=== PATIENT | female | born 1960 ===

== ENCOUNTER 2021-09-20 12:01 | Outpatient (CLI) | payer MEDICARE, SELFPAY ==
[2021-09-20 13:24] LABS: SARS-CoV-2 RNA PCR Negative (Negative)
== END 2021-09-20 12:02 | disposition home or self-care (01) ==
LOC: CHSLAB 12:06
PROVIDERS: PCP Physician Assistant; Visit Provider Physician Assistant
DX: B34.9 Viral infection, unspecified (principal); Z20.822 Contact with and (suspected) exposure to COVID-19
CPT/HCPCS: C9803; U0003; U0005

== ENCOUNTER 2023-11-07 20:40 | Emergency (ER) | payer MEDICARE, SELFPAY ==
--- NOTE | ~2023-11-07 | CT_ITS ---
EXAMINATION: CT diagnostic chest w con DATE: 11/07/2023 22:20 INDICATION: Left upper lobe mass, history of left upper lobectomy TECHNIQUE: Transaxial computed tomographic images of the chest were obtained after the administration of 75 cc of Omnipaque 350 intravenous contrast. The dose-length product (DLP) was 366.39 mGy-cm. Ite rative reconstruction was used. COMPARISON: None FINDINGS: There is severe emphysema. There is volume loss and architectural distortion of the left up per lobe with a surgical staple line noted, consistent with history of left upper lobectomy. There is a 2.3 x 2.2 cm area of subpleural fluid density in the left upper lung zone on image 31. There is pl eural thickening medially in the left upper lung zone. There is no pneumothorax. There is partial ate lectasis of the right middle lobe. There are subtle nodules of the left lower lobe. The heart size is normal. There are no pathologically enlarged thoracic lymph nodes. Changes in the left ribs are cons istent with prior thoracotomy. Punctate calcifications in an otherwise normal spleen likely represent healed granulomatous disease. Changes of cholecystectomy are noted. IMPRESSION: 1. Left upper lung zone findings most consistent with scarring, volume loss, and surgical change rela you to prior left upper lobectomy which account for the chest radiographic findings. Comparison with any available prior imaging would be helpful to assess for interval change. 2. Subtle nodules of the left lower lobe, likely infectious or inflammatory. 3. Severe emphysema. Reviewed, dictated and finalized at location F. IMPRESSION: 1. Left upper lung zone findings most consistent with scarring, volume loss, an d surgical change related to prior left upper lobectomy which account for the c hest radiographic findings. Comparison with any available prior imaging would b e helpful to assess for interval change. 2. Subtle nodules of the left lower lobe, likely infectious or inflammatory. 3. Severe emphysema.
--- NOTE | ~2023-11-07 | XR_ITS ---
EXAMINATION: XR chest 2V DATE: 11/07/2023 21:14 INDICATION: Shortness of breath TECHNIQUE: Frontal and lateral views of the chest are obtained COMPARISON: None available FINDINGS: There is an approximately 4 cm mass of the left upper lobe with volume loss and traction of the lower trachea. No pleural effusion or pneumothorax. The cardiomediastinal silhouette is normal. There is mild thoracic spondylosis. IMPRESSION: 1. 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 Reviewed, dictated and finalized at location F.
[2023-11-07 20:40] VITALS: BP 179/119; PULSE 56; RESP 24; O2SAT 96
--- NOTE | 2023-11-07 20:42 | ED.SOB ---
HPI - SOB/Dyspnea General Chief Complaint: Anxiety Stated Complaint: Panic Attack Time Seen by Provider: 11/07/23 20:42 Source: patient Mode of arrival: ambulatory Limitations: no limitations History of Present Illness HPI Narrative: patient is a 63-year-old female with a lot of anxiety this evening and felt like she had a panic attack. She became short of breath. patient is on chronic home O2 and has a L lobectomy. MD elicited complaint: shortness of breath Pertinent past history: COPD Onset (ago): minute(s) Context: anxiety and other ( Lots of concerns and anxiety this evening over housing) Timing: constant Severity: similar to previous episodes ( this feels like a prior panic attack) Exacerbating factors: other ( anxiety) Relieving factors: other ( breathing into a paper bag) Known history of: COPD Associated symptoms: denies other symptoms Treatment prior to arrival: none Related Data Home oxygen amount: 2 liters Home Medications Medication Instructions Recorded Confirmed albuterol sulfate 90 mcg/actuation 90 mcg inhalation Q4H PRN SOB 11/07/23 11/07/23 aerosol inhaler diazepam 5 mg tablet 5 mg PO BID PRN Anxiety 11/07/23 11/07/23 Allergies Allergy/AdvReac Type Severity Reaction Status Date / Time No Known Allergies Allergy Verified 11/07/23 21:58 Review of Systems Review of Systems: All systems reviewed & are unremarkable except as noted in HPI and below Constitutional: Constitutional: Reports no additional constitutional complaints Eyes: Eyes: Reports no additional eye complaints ENT: Reports system reviewed and no additional complaints, except as documented Cardiovascular: Cardiovascular: Reports no additional cardiovascular complaints Respiratory: Respiratory: Reports no additional respiratory complaints Gastrointestinal: Gastrointestinal: Reports no additional gastrointestinal complaints Genitourinary: Genitourinary: Reports no additional female genitourinary complaints Musculoskeletal: Musculoskeletal: Reports no additional musculoskeletal complaints Integumentary/Breasts: Skin/Breast: Reports system reviewed and no additional complaints, except as docu Neurologic: Reports system reviewed and no additional complaints, except as documented Psychiatric: Psychiatric: Reports no additional psychiatric complaints Endocrine: Endocrine: Reports no additional endocrine complaints Hematologic/Lymphatic: Hematologic/Lymphatic: Reports no additional hematologic/lymphatic complaints Allergic/Immunologic: Allergic/Immunologic: Reports no additional allergic/immunologic complaints Exam Const: General: healthy appearing Nutritional Appearance: well nourished Orientation/consciousness: patient oriented x3 HENMT: Head: normal to inspection Ears: external ears normal Face/Nose/Sinus: Normal external nose present Eyes: Conjunctivae: conjunctivae normal Pupils: Equal, round and reactive pupils present EOM: EOMs intact bilaterally Neck: Neck: normal visual inspection Chest: Chest palpation & inspection: normal inspection of the chest Resp: Effort & Inspection: normal respiratory effort and not labored Auscultation: clear to auscultation bilaterally Cardio: Rate: regular rate Rhythm: regular rhythm Heart sounds: no murmurs GI: Inspection: non-distended GI Palp: Yes Soft to palpation and No Tenderness to palpation present (GI) Auscultation: normal bowel sounds : General: Yes bladder normal to palpation Back/Spine/Pelvis: Back: no CVA tenderness Skin: General skin exam: normal color Rashes: no rashes Wounds: no wounds Neuro: General: patient oriented x3 Cranial nerves: Yes Nystagmus not present Speech: normal speech Extrem: General: normal to inspection Psych: Mental Status: mental status grossly normal Affect: normal affect Attitude: cooperative Course Vital Signs Vital signs: Vital Signs Pulse Oximetry 96 11/07/23 20:40 Oxygen Delivery Nasal Cannula 10/13
--- NOTE | 2023-11-07 20:44 | ECG_ITS ---
Measurements Intervals [place] Rate: 87 P: 53 NE: 153 QRS: 80 QRSD: 93 T: 65 QT: 380 QTc: 457 Interpretive Statements SINUS RHYTHM NONSPECIFIC ST & T-WAVE ABNORMALITY- ANTEROLAT/INF LEADS BASELINE ARTIFACT- I, II, III, AVR, AVL, AVF, V1-V6 BORDERLINE ECG NO PREVIOUS ECG AVAILABLE FOR COMPARISON Electronically Signed On 11-08-2023 6:43:04 CDT by Jaskaran Ferrari D.O.
[2023-11-07 21:06] LABS: Basophils Absolute Auto 0.03 K/mm3 (0.00-0.10); Basophils Percent Auto 0.4 % (0.0-1.0); Eosinophils Absolute Auto 0.07 K/mm3 (0.02-0.50); Eosinophils Percent Auto 0.9 % (1.0-6.0); Hemoglobin 12.9 g/dL (12.0-15.0); Immature Granulocyte Absolute 0.03 K/mm3 (0.00-0.00); Immature Granulocyte Percent A 0.4 % (0.0-0.0); Lymphocytes Absolute Auto 1.57 K/mm3 (1.10-4.50); Lymphocytes Percent Auto 19.5 % (18.0-42.0); Mean Corpuscular HGB Conc 31.5 g/dL (32-36); Mean Corpuscular Hemoglobin 28.4 pg (27.0-31.0); Mean Corpuscular Volume 90.1 fL (78.0-102.0); Mean Platelet Volume 9.1 fl (9.2-11.8); Monocytes Absolute Auto 0.42 K/mm3 (0.10-0.90); Monocytes Percent Auto 5.2 % (2.0-11.0); Neutrophils Absolute Auto 5.95 K/mm3 (1.70-7.20); Neutrophils Percent Auto 73.6 % (50.0-70.0); Platelet Count Result 454 K/mm3 (150-420); Red Blood Count 4.55 M/mm3 (4.20-5.40); Red Cell Distribution Width 14.2 % (11.6-14.4); White Blood Count 8.1 K/mm3 (4.8-10.8)
[2023-11-07 21:27] LABS: Lactic Acid Reflex 1.2 mmol/L (0.4-2.0)
[2023-11-07 21:32] LABS: Alanine Aminotransferase 19 U/L (14-59); Albumin Level 3.5 g/dL (3.4-5.0); Alkaline Phosphatase 109 U/L (46-116); Anion Gap 7 mmol/L (4-12); Aspartate Amino Transferase 16 U/L (15-37); Bilirubin,Total 0.4 mg/dL (0.00-1.00); Blood Urea Nitrogen 16 mg/dL (7-18); Calcium 9.1 mg/dL (8.5-10.1); Carbon Dioxide 33 mmol/L (21-32); Chloride 97 mmol/L (98-108); Estimated Glomerular Filt Rate > 60; Glucose 95 mg/dL (70-99); NT Pro B Type Natriuretic Pept 294 pg/mL (0-125); Osmolality Calculated 285 mOsm/kg (285-295); Potassium 4.1 mmol/L (3.5-5.1); Sodium 137 mmol/L (136-145); Total Protein 7.8 g/dL (6.4-8.2)
[2023-11-07 22:40] VITALS: BP 138/89; PULSE 77; RESP 18; O2SAT 98
== END 2023-11-07 22:50 | disposition home or self-care (01) ==
PROVIDERS: Emergency Provider Emergency Medicine; PCP Physician Assistant
DX: F41.9 Anxiety disorder, unspecified (principal); R06.00 Dyspnea, unspecified; J44.9 Chronic obstructive pulmonary disease, unspecified; Z90.2 Acquired absence of lung [part of]; Z99.81 Dependence on supplemental oxygen; Z79.51 Long term (current) use of inhaled steroids
CPT/HCPCS: 36415; 71046; 71260; 80053; 83605; 83880; 84484; 85025; 93005; 99284; Q9967